=== PATIENT | female | born 1985 | race Caucasian/White ===

== ENCOUNTER → 2016-07-08 | Outpatient (REF) ==
[~2016-07-08] MED LIST: CEPHALEXIN500 M1 PO; IBU400 MG PO; MACROBID 1100 MG/CAP PO; PYRIDIUM 100MG100 MG PO; PYRIDIUM200 M1 PO
== END ==
LOC: WSOH 09:23
DX: Z02.89 Encounter for other administrative examinations (principal)

== ENCOUNTER → 2016-07-12 | Outpatient (REF) | LOC: WSOH 13:20 | DX: Z02.1 Encounter for pre-employment examination (principal) ==

== ENCOUNTER → 2016-07-14 | Outpatient (REF) | LOC: WSOH 14:00 | DX: Z02.89 Encounter for other administrative examinations (principal) ==

== ENCOUNTER → 2016-07-19 | Outpatient (REF) | LOC: WSOH 15:03 | DX: Z11.1 Encounter for screening for respiratory tuberculosis (principal) ==

== ENCOUNTER → 2016-07-22 | Outpatient (REF) | LOC: WSOH 13:53 | DX: Z23 Encounter for immunization (principal) ==

== ENCOUNTER → 2016-08-19 | Outpatient (REF) | LOC: WSOH 15:16 | DX: Z23 Encounter for immunization (principal) ==

== ENCOUNTER 2016-08-31 15:02 | Emergency (ER) | payer SELFPAY ==
[~2016-08-31] VITALS: Ht 175.3 cm; Wt 66.4 kg
[2016-08-31 15:08] VITALS: BP 121/86; PULSE 99; TEMP 99.4
[2016-08-31 16:00] LABS: PH 5 (5-8); URINE APPEARANCE Cloudy; URINE BACTERIA Rare /hpf; URINE BILIRUBIN Negative (NEGATIVE); URINE BLOOD 3+ (NEGATIVE); URINE COLOR Yellow; URINE GLUCOSE Negative (NEGATIVE); URINE KETONE Negative (NEGATIVE); URINE RBC >50 /hpf; URINE UROBILINOGEN Negative (NEGATIVE); URINE WBC >50 /hpf
[2016-08-31] MEDS ORDERED: MACROBID 1100 MG/CAP PO (16:20)
[2016-08-31] MEDS ORDERED: PYRIDIUM 100MG100 MG PO (16:20)
== END 2016-08-31 16:29 | disposition home or self-care (01) ==
LOC: COL.ER 15:02
PROVIDERS: Nurse Practitioner
DX: N39.0 Urinary tract infection, site not specified (principal); Z97.5 Presence of (intrauterine) contraceptive device

== ENCOUNTER 2016-10-21 09:41 | Emergency (ER) | payer SELFPAY ==
[~2016-10-21] VITALS: Ht 175.3 cm; Wt 64.5 kg
[~2016-10-21 09:41] MED LIST changes: -CEPHALEXIN500 M1 PO; -IBU400 MG PO; -PYRIDIUM200 M1 PO
[2016-10-21 09:44] VITALS: BP 122/78; PULSE 86; TEMP 98.9
[2016-10-21] MEDS ORDERED: IBU400 MG PO (09:47)
[2016-10-21 10:20] LABS: PH 6 (5-8); URINE APPEARANCE Cloudy; URINE BACTERIA None Seen /hpf; URINE BILIRUBIN Negative (NEGATIVE); URINE BLOOD 1+ (NEGATIVE); URINE COLOR Yellow; URINE GLUCOSE Negative (NEGATIVE); URINE KETONE Negative (NEGATIVE); URINE UROBILINOGEN Negative (NEGATIVE); URINE WBC >50 /hpf
[2016-10-21] MEDS ORDERED: PYRIDIUM200 M1 PO (10:38)
[2016-10-21] MEDS ORDERED: CEPHALEXIN500 M1 PO (10:38)
== END 2016-10-21 11:16 | disposition home or self-care (01) ==
LOC: COL.ER 09:41
PROVIDERS: Physician Assistant
DX: N39.0 Urinary tract infection, site not specified (principal); F17.210 Nicotine dependence, cigarettes, uncomplicated; Z79.1 Long term (current) use of non-steroidal anti-inflammatories (NSAID)

== ENCOUNTER → 2017-08-18 | Outpatient (CLI) | payer OTHER ==
[~2017-08-18] MED LIST changes: +CEPHALEXIN500 M1 PO; +IBU400 MG PO; +PYRIDIUM200 M1 PO
== END ==
LOC: COL.RAD 12:36
DX: Z53.8 Procedure and treatment not carried out for other reasons (principal); O99.89 Other specified diseases and conditions complicating pregnancy, childbirth and the puerperium; R10.11 Right upper quadrant pain; Z3A.01 Less than 8 weeks gestation of pregnancy

== ENCOUNTER 2018-02-06 08:50 | Outpatient (CLI) | payer OTHER ==
[~2018-02-06] VITALS: Ht 170.2 cm; Wt 89.1 kg
[2018-02-06] MEDS ORDERED: PRENATAL MVI (09:11)
[2018-02-06 09:22] VITALS: BP 112/62; PULSE 82; TEMP 97.7
== END 2018-02-06 09:30 | disposition home or self-care (01) ==
LOC: LDRO 08:50
DX: O26.893 Other specified pregnancy related conditions, third trimester (principal); R10.9 Unspecified abdominal pain; Z3A.35 35 weeks gestation of pregnancy

== ENCOUNTER 2019-04-28 11:36 | Emergency (ER) | payer OTHER ==
[~2019-04-28 11:36] MED LIST changes: +BUSPAR5 MG PO; +MOTRIN 800800 MG/TAB PO; +PERCOCET 325 MG1 TA2 PO; +PRENATAL MVI
== END 2019-04-28 12:34 | disposition left against medical advice (07) ==
LOC: COL.ER 11:36
DX: Z72.9 Problem related to lifestyle, unspecified (principal)

== ENCOUNTER → 2019-07-17 | Outpatient (CLI) | payer OTHER | LOC: MHCPAIN 14:49 | DX: M54.5 Low back pain (principal); M54.16 Radiculopathy, lumbar region; M53.3 Sacrococcygeal disorders, not elsewhere classified | CPT/HCPCS: G0463 ==

== ENCOUNTER 2020-11-02 12:52 | Emergency (ER) | payer MEDICAID ==
[~2020-11-02] VITALS: Ht 170.2 cm; Wt 59.1 kg
[2020-11-02 13:11] VITALS: BP 109/77; TEMP 98.7
[2020-11-02 15:01] VITALS: PULSE 89
== END 2020-11-02 15:02 | disposition home or self-care (01) ==
LOC: COL.ER 12:52
DX: J06.9 Acute upper respiratory infection, unspecified (principal); Z20.822 Contact with and (suspected) exposure to COVID-19

== ENCOUNTER → 2021-09-27 | Outpatient (CLI) | payer MEDICAID | LOC: COL.RAD 10:47 | DX: M25.551 Pain in right hip (principal); M25.552 Pain in left hip ==

== ENCOUNTER → 2022-12-16 | Outpatient (CLI) | payer MEDICAID ==
[~2022-12-16] MED LIST changes: +AMOXICILLIN875 MG PO; +ANTIVERT 25MG25 MG PO; +PREDNISONE50 MG PO
== END ==
LOC: MHCPAIN 11:22
DX: M54.16 Radiculopathy, lumbar region (principal); Z98.890 Other specified postprocedural states; Q76.49 Other congenital malformations of spine, not associated with scoliosis; M25.561 Pain in right knee; M25.562 Pain in left knee; M54.2 Cervicalgia
CPT/HCPCS: G0463

== ENCOUNTER → 2023-04-06 | Outpatient (CLI) | payer MEDICAID | LOC: MHCPAIN 11:24 | DX: M54.16 Radiculopathy, lumbar region (principal); Z98.890 Other specified postprocedural states; Q76.49 Other congenital malformations of spine, not associated with scoliosis; M25.561 Pain in right knee; M25.562 Pain in left knee | CPT/HCPCS: G0463 ==